=== PATIENT | female | born 1995 | race African-American/Black ===

== ENCOUNTER → 2019-08-10 | Emergency (ER) | payer MEDICAID, OTHER ==
[~2019-08-10] VITALS: Ht 160 cm; Wt 59.0 kg
--- NOTE | 2019-08-10 10:30 | NUR ---
PATIENT AWAKE ALERT DENIES PAIN @ THIS TIME NOTED AMBULATORY URINE OBTAINED SEND TO LAB
[2019-08-10 10:35] LABS: BASOPHILS # (AUTO) 0.3 /CMM (0.0-0.2); EOSINOPHILS % (AUTO) 2.6 % (0.0-6.0); HEMATOCRIT 38 % (33-45); HEMOGLOBIN 12.6 g/dL (11.5-14.8); LYMPHOCYTES # (AUTO) 0.8 /CMM (0.8-4.8); LYMPHOCYTES % (AUTO) 18.7 % (20.0-44.0); MEAN CORPUSCULAR HGB CONC 33 g/dl (31.0-36.0); MEAN CORPUSCULAR VOLUME 86 fL (82-100); MONOCYTES # (AUTO) 0.4 /CMM (0.1-1.30); MONOCYTES % (AUTO) 9.6 % (2.0-12.0); NEUTROPHILS # (AUTO) 2.8 /CMM (1.8-8.9); NEUTROPHILS % (AUTO) 62.5 % (43.0-81.0); PLATELET COUNT (AUTO) 310 /CMM (150-450); RED BLOOD CELL COUNT(AUTO) 4.45 MIL/uL (4.0-5.2); WHITE BLOOD COUNT (AUTO) 4.5 K/uL (4.3-11.0)
[2019-08-10 10:35] LABS: APPEARANCE,URINE Clear (CLEAR); BILIRUBIN,URINE Negative (NEGATIVE); BLOOD, URINE Negative Ery/uL (NEGATIVE); COLOR,URINE Yellow (YELLOW); KETONES,URINE Negative (NEGATIVE); LEUKOCYTE ESTERASE ,URINE Negative (NEGATIVE); NITRITE, URINE Negative (NEGATIVE); PROTEIN,URINE Negative (NEGATIVE); UGLUCOSE Negative (NEGATIVE); UROBILINOGEN,URINE 0.2 EU/dL (0.2)
[2019-08-10 10:37] LABS: BASOPHILS % (AUTO) 6.6 % (0.0-2.0)
[2019-08-10 10:51] LABS: ALBUMIN 3.8 g/dL (3.4-5.0); BILIRUBIN,DIRECT 0.1 mg/dL (0.0-0.2); BILIRUBIN,TOTAL 0.3 mg/dL (0.2-1.0); CALCIUM, SERUM 8.9 mg/dL (8.5-10.1); CREATININE 0.8 mg/dL (0.6-1.3); POTASSIUM 4.2 mmol/L (3.5-5.1); TOTAL PROTEIN, SERUM 7.2 g/dL (6.4-8.2)
--- NOTE | 2019-08-10 11:37 | NUR ---
PATIENT ALERT, AWAKE, ORIENTED, AMBULATORY DC HOME INSTRUCTION GIVEN, AGREES TO FOLLOW UP WITH PMD IN AM
[2019-08-10 11:40] VITALS: BP 110/80
== END | disposition home or self-care (01) ==
LOC: ER 09:47
DX: O26.891 Other specified pregnancy related conditions, first trimester (principal); R10.30 Lower abdominal pain, unspecified; O99.511 Diseases of the respiratory system complicating pregnancy, first trimester; J45.909 Unspecified asthma, uncomplicated; O99.341 Other mental disorders complicating pregnancy, first trimester; F41.9 Anxiety disorder, unspecified; F31.9 Bipolar disorder, unspecified; O24.911 Unspecified diabetes mellitus in pregnancy, first trimester; Z88.8 Allergy status to other drugs, medicaments and biological substances; Z88.6 Allergy status to analgesic agent; Z3A.01 Less than 8 weeks gestation of pregnancy
CPT/HCPCS: 36415; 76805-TC; 80048-TC; 80076-TC; 81000-TC; 84702-TC; 85025-TC

== ENCOUNTER 2021-09-03 12:27 | Emergency (ER) | payer MEDICAID ==
--- NOTE | 2021-09-03 12:51 | NUR ---
called to triage,no answer
--- NOTE | 2021-09-03 13:30 | NUR ---
called in ed. pt left without being seen.
== END 2021-09-03 13:40 | disposition left against medical advice (07) ==
LOC: ER 12:29
DX: R53.1 Weakness (principal); Z53.21 Procedure and treatment not carried out due to patient leaving prior to being seen by health care provider

== ENCOUNTER 2022-07-02 10:29 | Emergency (ER) | payer MEDICAID, OTHER ==
[~2022-07-02] VITALS: Ht 160 cm; Wt 59.0 kg
[2022-07-02] MEDS ORDERED: IV NS 0.9% 500 ML BAG IV ONE (11:00)
--- NOTE | 2022-07-02 11:00 | NUR ---
RECEIVED PT 26 YRSE FEMALE C/O HEADACHE FOR ON AND OFF FOR 2 YRS AWAKE ALERT RESPIRATION SPONT AND EASY
--- NOTE | 2022-07-02 11:43 | NUR ---
URINE SAMPLE COLLECTED AND SENT TO LAB
--- NOTE | 2022-07-02 11:45 | NUR ---
IV LINE ESTABLISHED ON RAC #20, BLOOD DRAWN AND SENT TO LAB
--- NOTE | 2022-07-02 11:52 | NUR ---
UA SENT TO LAB
[2022-07-02 11:59] LABS: BASOPHILS % (AUTO) 0.8 % (0.0-2.0); HEMATOCRIT 40 % (33-45); HEMOGLOBIN 12.9 g/dL (11.5-14.8); LYMPHOCYTES # (AUTO) 1.4 K/uL (0.8-4.8); LYMPHOCYTES % (AUTO) 30.3 % (20.0-44.0); MEAN CORPUSCULAR HGB CONC 32 g/dl (31.0-36.0); MEAN CORPUSCULAR VOLUME 81 fL (82-100); MONOCYTES # (AUTO) 0.4 K/uL (0.1-1.30); MONOCYTES % (AUTO) 9.1 % (2.0-12.0); NEUTROPHILS # (AUTO) 2.7 K/uL (1.8-8.9); NEUTROPHILS % (AUTO) 58.8 % (43.0-81.0); PLATELET COUNT (AUTO) 380 K/uL (150-450); WHITE BLOOD COUNT (AUTO) 4.6 K/uL (4.3-11.0)
[2022-07-02 12:09] LABS: CREATININE 0.9 mg/dL (0.6-1.3); POTASSIUM 3.7 mmol/L (3.5-5.1)
--- NOTE | 2022-07-02 12:15 | NUR ---
TO CT SCAN OF HEAD VIA GARNY STABLE VS AND CONDITION
[2022-07-02] MEDS ORDERED: METOCLOPRAMIDE HCL 10 MG/2 ML VIAL IV ONE (13:00)
[2022-07-02] MEDS ORDERED: diphenhydrAMINE HCL 50 MG/ML VIAL IV ONE (13:00)
[2022-07-02] MEDS ORDERED: KETOROLAC TROMETHAMINE INJ 30 MG/ML VIAL IV ONE (13:00)
[2022-07-02] MEDS ORDERED: diphenhydrAMINE HCL 50 MG/ML VIAL ONE (13:11)
[2022-07-02] MEDS ORDERED: KETOROLAC TROMETHAMINE 15 MG/ML VIAL ONE (13:12)
[2022-07-02] MEDS ORDERED: METOCLOPRAMIDE HCL 10 MG/2 ML VIAL ONE ×2 (13:13)
--- NOTE | 2022-07-02 13:47 | NUR ---
pt asleepy looks comfortable
--- NOTE | 2022-07-02 15:00 | NUR ---
PT ASLEEPY LOOKS COMFORABLE NO HEACH OR PAIN
--- NOTE | 2022-07-02 15:58 | NUR ---
FULLY AWAKE AND ALERT DINESS ANY HEADACK AT THIS TIME D/C INSTRACTION GIVEN TO PT FULLY UNDERSTOOD
[2022-07-02 16:03] VITALS: BP 92/54
== END 2022-07-02 16:04 | disposition home or self-care (01) ==
LOC: ER 11:00
DX: G43.109 Migraine with aura, not intractable, without status migrainosus (principal); J45.909 Unspecified asthma, uncomplicated; F31.9 Bipolar disorder, unspecified; F41.9 Anxiety disorder, unspecified; Z88.8 Allergy status to other drugs, medicaments and biological substances
CPT/HCPCS: 99285; 96374; 70450; 96375; 96361; 85025; 80048; 84703; 36415; J1200; J2765 ×2; J7030; J1885